=== PATIENT | male | born 2000 | race Caucasian/White ===

== ENCOUNTER 2024-08-04 19:54 | Emergency (ER) | payer MEDICARE ==
[~2024-08-04] VITALS: Ht 170.2 cm; Wt 54.4 kg
[2024-08-04 20:31] VITALS: BP 116/0; PULSE 85; RESP 18; TEMP 97.6; O2SAT 98
[2024-08-04] MEDS: ONDANSETRON 4 MG ODT PO ONE (22:48)
[2024-08-04] MEDS: ACETAMINOPHEN 325 MG TAB PO ONE (22:48)
[2024-08-05 00:20] LABS: BASOPHILS % (AUTO) 0.4 % (0.0-2.0); EOSINOPHILS % (AUTO) 0.3 % (0.0-4.0); HEMATOCRIT 42.9 % (36-52); HEMOGLOBIN 14.5 g/dL (12.0-18.0); LYMPHOCYTES # (AUTO) 2.6 K/uL (2.0-11.5); LYMPHOCYTES % (AUTO) 32.2 % (20.5-51.1); MEAN CORPUSCULAR HEMOGLOBIN 31 pg (27-31); MEAN CORPUSCULAR HGB CONC 34 g/dL (33-37); MEAN CORPUSCULAR VOLUME 90.1 fL (80-94); MONOCYTES # (AUTO) 0.8 K/uL (0.8-1.0); MONOCYTES % (AUTO) 9.9 % (1.7-9.3); NEUTROPHILS # (AUTO) 4.6 K/uL (1.8-7.7); NEUTROPHILS % (AUTO) 57.2 % (42.2-75.2); PLATELET COUNT (AUTO) 297 K/uL (140-450); RED BLOOD CELL COUNT(AUTO) 4.76 MIL/uL (4.20-6.10); RED CELL DISTRIBUTION WIDTH 12.2 % (11.6-13.7); WHITE BLOOD COUNT (AUTO) 8.1 K/uL (4.8-10.8)
[2024-08-05 00:32] LABS: ANION GAP 14.5 (8-16); CALCIUM 9.5 mg/dL (8.5-10.1); CARBON DIOXIDE 26.2 mmol/L (21-32); CREATININE 0.9 mg/dL (0.6-1.3); POTASSIUM 3.7 mmol/L (3.5-5.1)
[2024-08-05 00:37] LABS: INR 1.06 (0.8-1.2); PARTIAL THROMBOPLASTIN TIME 23.4 secs (22-35.6); PROTHROMBIN TIME 11.1 secs (10.8-13.4)
[2024-08-05 00:51] LABS: ALBUMIN 4.8 g/dL (3.4-5.0); BILIRUBIN,DIRECT 0.1 mg/dL (0.0-0.3); TOTAL BILIRUBIN 0.6 mg/dL (0.0-1.0); TOTAL PROTEIN, SERUM 8.5 g/dL (6.4-8.2)
[2024-08-05] MEDS ORDERED: levETIRAcetam 500 MG TAB PO ONE (01:25)
[2024-08-05] MEDS ORDERED: levETIRAcetam 100 MG/ML VIAL IV ONE (01:38)
[2024-08-05] MEDS: HYDROcodone/APAP 5/325 MG 1 TAB TAB PO ONE (01:51)
[2024-08-05] MEDS: levETIRAcetam 1,000 MG in NACL 0.9% 100 ML IV SCH (02:03)
[2024-08-05] MEDS ORDERED: ONDA-188 SL (02:23)
[2024-08-05] MEDS ORDERED: ACET-8905 PO (02:23)
== END 2024-08-05 03:10 | disposition home or self-care (01) ==
LOC: MED 19:54
DX: R51.9 Headache, unspecified (principal); G93.0 Cerebral cysts; Z79.899 Other long term (current) drug therapy
CPT/HCPCS: 36415; 70450; 80048; 80076; 85025; 85610; 85730; 96365; 99285; J1953; Q0162; 99291